=== PATIENT | male | born 1955 | race Two or more races ===

== ENCOUNTER 2020-09-01 10:24 | Inpatient (IN) | payer MEDICARE ==
[~2020-09-01] VITALS: Ht 157.5 cm; Wt 75.0 kg
[2020-09-01] MEDS ORDERED: SERT50TA12 PO (10:42)
[2020-09-01] MEDS ORDERED: METO5TAB7 PO (10:42)
[2020-09-01] MEDS ORDERED: DIPH1TAB24 PO (10:42)
[2020-09-01] MEDS ORDERED: predisone (10:42)
[2020-09-01] MEDS ORDERED: ONDA8TAB6 PO (10:42)
[2020-09-01] MEDS ORDERED: CLON0.5T4 PO (10:42)
[2020-09-01] MEDS ORDERED: MICA100V3 IV (10:42)
[2020-09-01] MEDS ORDERED: ELTR50TA PO (10:42)
[2020-09-01] MEDS ORDERED: ISAV186C PO (10:42)
[2020-09-01] MEDS ORDERED: SIRO2TAB PO (10:42)
[2020-09-01] MEDS ORDERED: PROC10TA17 PO (10:42)
[2020-09-01] MEDS ORDERED: ACYC200C PO (10:42)
[2020-09-01] MEDS ORDERED: METO-396 PO (10:42)
[2020-09-01] MEDS ORDERED: BUDE9TAB MT (10:42)
[2020-09-01] MEDS ORDERED: URSO300C4 PO (10:42)
[2020-09-01] MEDS ORDERED: PANT40TA4 PO (10:42)
[2020-09-01] MEDS ORDERED: [UNRECOGNIZED DRUG - CODE] IV (10:42)
[2020-09-01] MEDS ORDERED: atovaquone (10:42)
[2020-09-01] MEDS ORDERED: SODIUM CHLORIDE 0.9% 1,000 ML IV ONE ×2 (10:45→12:00)
[2020-09-01] MEDS ORDERED: MORPHINE SULFATE 4 MG/ML CPJ (NOT FOR IM USE) IV STA (10:52)
[2020-09-01] MEDS ORDERED: ONDANSETRON HCL 4MG/2ML INJ IV STA (10:52)
[2020-09-01] MEDS ORDERED: PIPERACILLIN/TAZ 3.375G PREMIX 50 ML IV ONE (11:00)
[2020-09-01] MEDS ORDERED: METRONIDAZOLE 500 MG PREMIX 100 ML IV ONE (11:00)
[2020-09-01 11:15] LABS: CHLORIDE 103 mEq/L (98-107)
[2020-09-01 11:16] LABS: HEMATOCRIT. 23.5 % (42.0-52.0); MEAN CORPUSCULAR HEMOGLOBIN 30.7 pg (28.0-32.0); MEAN CORPUSCULAR VOLUME 90.2 fL (80.0-94.0); MEAN PLATELET VOLUME 8.4 fl (7.4-10.4); RED CELL DISTRIBUTION WIDTH 16.2 % (11.6-14.6)
[2020-09-01 11:24] LABS: PLATELET 13 x1000/uL (130-400)
[2020-09-01] MEDS ORDERED: KCL 10MEQ/50ML PREMIX 100 ML IV SCH (12:00)
[2020-09-01] MEDS ORDERED: POTASSIUM CHLORIDE 20MEQ TABLET SR PO ONE (12:00)
[2020-09-01] MEDS ORDERED: NOREPINEPHRINE 8MG/250ML PMX 250 ML IV ONE (12:00)
[2020-09-01 12:02] LABS: PLATELET ESTIMATE MARKEDLY DECREASED
[2020-09-01] MEDS ORDERED: NOREPINEPHRINE 8MG/250ML PMX 250 ML IV PRN (12:30)
[2020-09-01] MEDS ORDERED: FENTANYL CITRATE/PF 50MCG/ML 2ML VIAL IV ONE (12:30)
[2020-09-01] MEDS ORDERED: CEFEPIME 1,000 MG in DEXTROSE 5% WATER 50 ML IV SCH (14:00)
[2020-09-01] MEDS: DEXT 5%/0.45% NACL 1000ML 1,000 ML IV SCH (15:04)
[2020-09-01] MEDS ORDERED: IOHEXOL-350 100 ML BOTTLE ONE (15:12)
[2020-09-01] MEDS ORDERED: MAGNESIUM 2 G PREMIX 50 ML IV NR (15:30)
[2020-09-01 15:54] LABS: CLARITY URINE CLEAR (CLEAR); COLOR URINE YELLOW (YELLOW); KETONES URINE NEGATIVE (NEGATIVE); LEUKOCYTE ESTERASE URINE NEGATIVE (NEGATIVE); NITRITE URINE NEGATIVE (NEGATIVE); OCCULT BLOOD URINE NEGATIVE (NEGATIVE); PROTEIN URINE NEGATIVE (NEGATIVE); SPECIFIC GRAVITY URINE 1.013 (1.005-1.030); UROBILINOGEN URINE 0.2 E.U./dL (0.2-1.0)
[2020-09-01] MEDS ORDERED: POTASSIUM CHLORIDE 20MEQ TABLET SR PO SCH (16:00)
[2020-09-01] MEDS ORDERED: MIDODRINE HCL 5MG TABLET PO SCH (16:07)
[2020-09-01] MEDS: ONDANSETRON HCL 4MG/2ML INJ IV PRN (16:51)
[2020-09-01] MEDS ORDERED: PHENYLEPHRINE 100 MG in DEXT 5% WATER 240 ML IV PRN (17:30)
[2020-09-01] MEDS ORDERED: TRAMADOL 50MG TABLET PO PRN (17:30)
[2020-09-01] MEDS: PANTOPRAZOLE SODIUM 40 MG/VIAL IV SCH (19:45)
[2020-09-01 21:01] LABS: HEMATOCRIT. 22.3 % (42.0-52.0); HEMOGLOBIN. 7.6 g/dL (14.0-18.0); MEAN CORPUSCULAR HEMOGLOBIN 31.2 pg (28.0-32.0); MEAN CORPUSCULAR VOLUME 91.9 fL (80.0-94.0); MEAN PLATELET VOLUME 8.1 fl (7.4-10.4); PLATELET 53 x1000/uL (130-400); RED BLOOD CELL COUNT 2.43 mill/uL (4.7-6.1); RED CELL DISTRIBUTION WIDTH 16.6 % (11.6-14.6)
[2020-09-01] MEDS ORDERED: METRONIDAZOLE 500 MG PREMIX 100 ML IV SCH (22:00)
[2020-09-01 22:25] LABS: NUCLEATED RED BLOOD CELLS 1 /100 WBC
[2020-09-01 22:26] LABS: PLATELET ESTIMATE MARKEDLY DECREASED
[2020-09-02] VITALS (45 sets, daily range): BP systolic 49–137; BP diastolic 13–98
[2020-09-02] MEDS ORDERED: NOREPINEPHRINE 8MG/250ML PMX 250 ML IV PRN ×2 (01:15→09:30)
[2020-09-02 04:07] LABS: HEMATOCRIT. 27.4 % (42.0-52.0); HEMOGLOBIN. 9.4 g/dL (14.0-18.0); MEAN CORPUSCULAR HEMOGLOBIN 30.3 pg (28.0-32.0); MEAN CORPUSCULAR VOLUME 88.8 fL (80.0-94.0); RED BLOOD CELL COUNT 3.09 mill/uL (4.7-6.1); RED CELL DISTRIBUTION WIDTH 16.8 % (11.6-14.6)
[2020-09-02 04:11] LABS: CHLORIDE 112 mEq/L (98-107); PLATELET 41 x1000/uL (130-400)
[2020-09-02] MEDS: DEXT 5%/0.45% NACL 1000ML 1,000 ML IV SCH (04:35)
[2020-09-02] MEDS: ONDANSETRON HCL 4MG/2ML INJ IV PRN ×3 (04:47→20:59)
[2020-09-02 04:52] LABS: ATYPICAL LYMPHOCYTES 2
[2020-09-02 04:53] LABS: PLATELET ESTIMATE DECREASED
[2020-09-02] MEDS ORDERED: POTASSIUM CHLORIDE INJ 40 MEQ in DEXT 5% WATER 500 ML IV NR (06:00)
[2020-09-02] MEDS ORDERED: MORPHINE SULFATE 4 MG/ML CPJ (NOT FOR IM USE) IV PRN (06:22)
[2020-09-02] MEDS ORDERED: NOREPINEPHRINE 8MG/250ML PMX 250ML IV ONE (06:23)
[2020-09-02] MEDS ORDERED: NOREPINEPHRINE 8 MG in DEXTROSE 5% WATER 250 ML IV PRN (09:30)
[2020-09-02 09:59] LABS: BG CARBOXYHEMOGLOBIN 0.3 % (0.5-1.5); BG FRACTION INSPIRED OXYGEN 34; BG HCO3 ACT 10.8 mmol/L (22.0-26.0); BG METHEMOGLOBIN 0.5 % (0.0-1.5); BG OXYHEMOGLOBIN 93.2 % (94.0-97.0); BG PCO2 22.5 mmHg (35.0-45.0); BG SAMPLE SITE RIGHT RADIAL; BG TOTAL HEMOGLOBIN 9.4 g/dL (12.0-18.0); BG VENT MODE NASAL CANNULA
[2020-09-02] MEDS: PHENYLEPHRINE 100 MG in DEXT 5% WATER 240 ML IV PRN ×2 (10:13→19:06)
[2020-09-02] MEDS ORDERED: IPRATROPIUM/ALBUTEROL 0.5-3(2.5)MG/3ML NEB HHN PRN (11:00)
[2020-09-02] MEDS ORDERED: LORAZEPAM 2MG/ML CPJ IV PRN (11:15)
[2020-09-02] MEDS: PANTOPRAZOLE SODIUM 40 MG/VIAL IV SCH (11:35)
[2020-09-02] MEDS: MORPHINE SULFATE 2 MG/ML CPJ (NOT FOR IM USE) IV PRN ×4 (11:36→21:15)
[2020-09-02] MEDS: CEFEPIME 1,000 MG in DEXTROSE 5% WATER 50 ML IV SCH (11:36)
[2020-09-02] MEDS: SODIUM BICARBONATE 100 MEQ in SODIUM CHLORIDE 0.45% 1,000 ML IV SCH ×2 (11:37→23:08)
[2020-09-02 12:05] LABS: PHOSPHORUS 3.2 mg/dL (2.5-4.9)
[2020-09-02 12:33] LABS: *AMPHETAMINES SCREEN URINE NEGATIVE (NEGATIVE); METHADONE URINE SCREEN NEGATIVE (NEGATIVE); OPIATES URINE SCREEN PRESUMTIVE POSITIVE (NEGATIVE); PHENCYCLIDINE URINE SCREEN NEGATIVE (NEGATIVE)
[2020-09-02 12:34] LABS: *BARBITURATES SCREEN URINE NEGATIVE (NEGATIVE); *BENZODIAZEPINES SCREEN URINE NEGATIVE (NEGATIVE); *COCAINE SCREEN URINE NEGATIVE (NEGATIVE); CANNABINOID URINE SCREEN NEGATIVE (NEGATIVE)
[2020-09-02] MEDS: METRONIDAZOLE 500 MG PREMIX 100 ML IV SCH ×2 (12:53→22:00)
[2020-09-02] MEDS: MIDODRINE HCL 5MG TABLET PO SCH ×2 (13:00→17:49)
[2020-09-02] MEDS ORDERED: MAGNESIUM 2 G PREMIX 50 ML IV NR (14:00)
[2020-09-02] MEDS ORDERED: SODIUM BICARBONATE 8.4% 1 MEQ/ML 50ML SYR IV NR (14:30)
[2020-09-02] MEDS: CITRIC ACID/SODIUM CITRATE SOLN 30ML UDC PO SCH ×2 (14:53→15:57)
[2020-09-02] MEDS ORDERED: AMIODARONE HCL 50MG/ML 3ML VIAL IV ONE (15:45)
[2020-09-02] MEDS: IPRATROPIUM/ALBUTEROL 0.5-3(2.5)MG/3ML NEB HHN SCH ×3 (16:17→23:35)
[2020-09-02] MEDS ORDERED: AMIODARONE HCL 150 MG in DEXT 5% WATER 100 ML IV SCH (16:30)
[2020-09-02 16:42] LABS: CHLORIDE 112 mEq/L (98-107)
[2020-09-02] MEDS: DEXTROSE 50% WATER 50ML SYRINGE IV PRN (23:08)
[2020-09-03] VITALS (88 sets, daily range): BP systolic 84–174; BP diastolic 34–111
[2020-09-03 00:55] LABS: BG BASE EXCESS -9.3 mmol/L (-2.0-2.0); BG CARBOXYHEMOGLOBIN 0.3 % (0.5-1.5); BG DEOXYHEMOGLOBIN 7.8 % (0.0-5.0); BG FRACTION INSPIRED OXYGEN 36; BG HCO3 ACT 15.7 mmol/L (22.0-26.0); BG METHEMOGLOBIN 0.3 % (0.0-1.5); BG OXYGEN SATURATION 92.2 % (92.0-98.5); BG OXYHEMOGLOBIN 91.6 % (94.0-97.0); BG PCO2 30.7 mmHg (35.0-45.0); BG PH 7.326 (7.350-7.450); BG PO2 67.8 mmHg (75.0-100.0); BG SAMPLE SITE RIGHT RADIAL; BG TOTAL HEMOGLOBIN 8.8 g/dL (12.0-18.0); BG VENT MODE NASAL CANNULA
[2020-09-03] MEDS ORDERED: SODIUM BICARBONATE 8.4% 1 MEQ/ML 50ML SYR IV NR ×2 (01:00→08:45)
[2020-09-03] MEDS: DEXTROSE 50% WATER 50ML SYRINGE IV PRN (02:16)
[2020-09-03] MEDS ORDERED: POTASSIUM CHLORIDE 20MEQ/PACKET PO NR (02:45)
[2020-09-03] MEDS: IPRATROPIUM/ALBUTEROL 0.5-3(2.5)MG/3ML NEB HHN SCH ×3 (03:26→20:42)
[2020-09-03] MEDS: CEFEPIME 1,000 MG in DEXTROSE 5% WATER 50 ML IV SCH ×2 (03:30→13:01)
[2020-09-03] MEDS: PHENYLEPHRINE 100 MG in DEXT 5% WATER 240 ML IV PRN ×2 (03:33→16:01)
[2020-09-03] MEDS: NOREPINEPHRINE 32 MG in DEXT 5% WATER 218 ML IV PRN ×2 (03:35→17:42)
[2020-09-03] MEDS ORDERED: POTASSIUM CHLORIDE INJ 40 MEQ in DEXT 5% WATER 250 ML IV NR (04:00)
[2020-09-03 05:44] LABS: HEMOGLOBIN. 8.8 g/dL (14.0-18.0); MEAN CORPUSCULAR HEMOGLOBIN 31.4 pg (28.0-32.0); MEAN CORPUSCULAR VOLUME 89.5 fL (80.0-94.0); MEAN PLATELET VOLUME 8.3 fl (7.4-10.4); RED BLOOD CELL COUNT 2.79 mill/uL (4.7-6.1); RED CELL DISTRIBUTION WIDTH 18.8 % (11.6-14.6)
[2020-09-03 05:48] LABS: CHLORIDE 108 mEq/L (98-107)
[2020-09-03 05:56] LABS: PHOSPHORUS 3.5 mg/dL (2.5-4.9)
[2020-09-03] MEDS: METRONIDAZOLE 500 MG PREMIX 100 ML IV SCH ×2 (06:25→13:10)
[2020-09-03 07:02] LABS: PLATELET 17 x1000/uL (130-400)
[2020-09-03] MEDS: BLOOD SUGAR DIAGNOSTIC STRIP TEST SCH ×3 (07:50→17:42)
[2020-09-03 08:05] LABS: BG BASE EXCESS -8.8 mmol/L (-2.0-2.0); BG CARBOXYHEMOGLOBIN 0.2 % (0.5-1.5); BG DEOXYHEMOGLOBIN 8.2 % (0.0-5.0); BG FRACTION INSPIRED OXYGEN 100; BG HCO3 ACT 16.5 mmol/L (22.0-26.0); BG METHEMOGLOBIN 0.2 % (0.0-1.5); BG OXYGEN SATURATION 91.8 % (92.0-98.5); BG OXYHEMOGLOBIN 91.4 % (94.0-97.0); BG PH 7.317 (7.350-7.450); BG PO2 65.5 mmHg (75.0-100.0); BG SAMPLE SITE RIGHT RADIAL; BG TOTAL HEMOGLOBIN 8.7 g/dL (12.0-18.0); BG VENT MODE MASK - NRB
[2020-09-03] MEDS ORDERED: FUROSEMIDE 100MG/10ML VIAL IVP SCH (08:45)
[2020-09-03] MEDS ORDERED: VASOPRESSIN 20 UNIT in SODIUM CHLORIDE 0.9% 99 ML IV PRN (08:45)
[2020-09-03] MEDS ORDERED: MIDAZOLAM HCL 100 MG in DEXT 5% WATER 80 ML IV ONE (08:45)
[2020-09-03] MEDS ORDERED: SUCCINYLCHOLINE CHLORIDE 200MG/10ML IV ONE (09:00)
[2020-09-03] MEDS ORDERED: VECURONIUM BROMIDE 10 MG/VIAL IV ONE (09:00)
[2020-09-03] MEDS ORDERED: ETOMIDATE 2MG/ML 10ML VIAL IV ONE (09:00)
[2020-09-03 09:17] LABS: BG BASE EXCESS -5.3 mmol/L (-2.0-2.0); BG CARBOXYHEMOGLOBIN 0.2 % (0.5-1.5); BG DEOXYHEMOGLOBIN 2.1 % (0.0-5.0); BG HCO3 ACT 20.7 mmol/L (22.0-26.0); BG METHEMOGLOBIN 0.3 % (0.0-1.5); BG OXYGEN SATURATION 97.9 % (92.0-98.5); BG OXYHEMOGLOBIN 97.4 % (94.0-97.0); BG PCO2 42.6 mmHg (35.0-45.0); BG PH 7.305 (7.350-7.450); BG PO2 124.8 mmHg (75.0-100.0); BG SAMPLE SITE RIGHT RADIAL; BG TOTAL HEMOGLOBIN 9.1 g/dL (12.0-18.0); BG VENT MODE VENT - AC
[2020-09-03] MEDS: CITRIC ACID/SODIUM CITRATE SOLN 30ML UDC PO SCH ×3 (09:50→16:06)
[2020-09-03] MEDS: MIDODRINE HCL 5MG TABLET PO SCH ×3 (09:50→16:06)
[2020-09-03] MEDS: PANTOPRAZOLE SODIUM 40 MG/VIAL IV SCH (09:50)
[2020-09-03 10:14] LABS: INR 1.6; PROTHROMBIN TIME 16.3 sec (9.6-11.0)
[2020-09-03] MEDS: SODIUM BICARBONATE 150 MEQ in DEXTROSE 5% WATER 1,000 ML IV SCH (10:42)
[2020-09-03] MEDS ORDERED: LIDOCAINE HCL 1% 20ML VIAL (Pyxis) INJ ONE (13:31)
[2020-09-03 17:26] LABS: PLATELET ESTIMATE MARKEDLY DECREASED
[2020-09-03] MEDS ORDERED: IOHEXOL-350 100 ML BOTTLE ONE (21:06)
[2020-09-03] MEDS: FENTANYL CITRATE/PF 1,000 MCG in SODIUM CHLORIDE 0.9% 80 ML IV PRN (21:46)
[2020-09-04] VITALS (126 sets, daily range): BP systolic 73–177; BP diastolic 43–81
[2020-09-04] MEDS: IPRATROPIUM/ALBUTEROL 0.5-3(2.5)MG/3ML NEB HHN SCH ×6 (00:55→20:39)
[2020-09-04] MEDS: METRONIDAZOLE 500 MG PREMIX 100 ML IV SCH ×2 (01:28→07:00)
[2020-09-04] MEDS: SODIUM BICARBONATE 150 MEQ in DEXTROSE 5% WATER 1,000 ML IV SCH ×3 (01:28→23:15)
[2020-09-04] MEDS: CEFEPIME 1,000 MG in DEXTROSE 5% WATER 50 ML IV SCH (01:36)
[2020-09-04] MEDS: BLOOD SUGAR DIAGNOSTIC STRIP TEST SCH ×4 (01:48→17:52)
[2020-09-04 05:44] LABS: INR 1.4; PROTHROMBIN TIME 14.9 sec (9.6-11.0)
[2020-09-04 05:59] LABS: HEMATOCRIT. 22.1 % (42.0-52.0); HEMOGLOBIN. 7.9 g/dL (14.0-18.0); MEAN CORPUSCULAR HEMOGLOBIN 31.4 pg (28.0-32.0); MEAN CORPUSCULAR VOLUME 87.5 fL (80.0-94.0); MEAN PLATELET VOLUME 8.9 fl (7.4-10.4); RED BLOOD CELL COUNT 2.52 mill/uL (4.7-6.1); RED CELL DISTRIBUTION WIDTH 18.5 % (11.6-14.6)
[2020-09-04 06:09] LABS: PLATELET 37 x1000/uL (130-400)
[2020-09-04 07:47] LABS: NUCLEATED RED BLOOD CELLS 1 /100 WBC; PLATELET ESTIMATE MARKEDLY DECREASED
[2020-09-04] MEDS ORDERED: POTASSIUM CHLORIDE 20MEQ TABLET SR PO NR (08:15)
[2020-09-04 09:14] LABS: BG BASE EXCESS -0.8 mmol/L (-2.0-2.0); BG CARBOXYHEMOGLOBIN 0.3 % (0.5-1.5); BG DEOXYHEMOGLOBIN 1.7 % (0.0-5.0); BG FRACTION INSPIRED OXYGEN 80; BG HCO3 ACT 23.9 mmol/L (22.0-26.0); BG METHEMOGLOBIN 0.5 % (0.0-1.5); BG OXYGEN SATURATION 98.3 % (92.0-98.5); BG OXYHEMOGLOBIN 97.5 % (94.0-97.0); BG PCO2 39.3 mmHg (35.0-45.0); BG PH 7.401 (7.350-7.450); BG PO2 140.5 mmHg (75.0-100.0); BG SAMPLE SITE ALINE; BG TOTAL HEMOGLOBIN 10.3 g/dL (12.0-18.0); BG VENT MODE VENT - AC
[2020-09-04] MEDS: CITRIC ACID/SODIUM CITRATE SOLN 30ML UDC PO SCH ×3 (09:19→17:36)
[2020-09-04] MEDS: MIDODRINE HCL 5MG TABLET PO SCH ×3 (09:20→17:37)
[2020-09-04] MEDS: PANTOPRAZOLE SODIUM 40 MG/VIAL IV SCH (09:21)
[2020-09-04] MEDS: FUROSEMIDE 40MG/4ML VIAL IVP SCH (09:21)
[2020-09-04] MEDS: MEROPENEM 1,000 MG in SODIUM CHLORIDE 0.9% 100 ML IV SCH ×2 (12:05→20:24)
[2020-09-04] MEDS: PHENYLEPHRINE 100 MG in DEXT 5% WATER 240 ML IV PRN (15:15)
[2020-09-04] MEDS: FENTANYL CITRATE/PF 1,000 MCG in SODIUM CHLORIDE 0.9% 80 ML IV PRN (23:15)
[2020-09-05] VITALS (104 sets, daily range): BP systolic 57–189; BP diastolic 29–91
[2020-09-05] MEDS: IPRATROPIUM/ALBUTEROL 0.5-3(2.5)MG/3ML NEB HHN SCH ×6 (00:22→20:18)
[2020-09-05] MEDS: NOREPINEPHRINE 32 MG in DEXT 5% WATER 218 ML IV PRN ×2 (05:24→22:16)
[2020-09-05] MEDS: BLOOD SUGAR DIAGNOSTIC STRIP TEST SCH ×4 (06:28→17:25)
[2020-09-05] MEDS: SODIUM BICARBONATE 150 MEQ in DEXTROSE 5% WATER 1,000 ML IV SCH (06:28)
[2020-09-05 06:45] LABS: PHOSPHORUS 3.1 mg/dL (2.5-4.9)
[2020-09-05 06:47] LABS: HEMATOCRIT. 21.2 % (42.0-52.0); HEMOGLOBIN. 7.6 g/dL (14.0-18.0); MEAN CORPUSCULAR HEMOGLOBIN 30.5 pg (28.0-32.0); MEAN CORPUSCULAR VOLUME 85.1 fL (80.0-94.0); MEAN PLATELET VOLUME 9.2 fl (7.4-10.4); RED BLOOD CELL COUNT 2.49 mill/uL (4.7-6.1); RED CELL DISTRIBUTION WIDTH 17.6 % (11.6-14.6)
[2020-09-05] MEDS: ACETAMINOPHEN 325MG TABLET PO PRN (07:57)
[2020-09-05] MEDS: FUROSEMIDE 40MG/4ML VIAL IVP SCH (07:58)
[2020-09-05] MEDS: MIDODRINE HCL 5MG TABLET PO SCH ×3 (07:58→17:50)
[2020-09-05] MEDS: MEROPENEM 1,000 MG in SODIUM CHLORIDE 0.9% 100 ML IV SCH ×2 (07:58→20:30)
[2020-09-05] MEDS: PANTOPRAZOLE SODIUM 40 MG/VIAL IV SCH (07:58)
[2020-09-05] MEDS: CITRIC ACID/SODIUM CITRATE SOLN 30ML UDC PO SCH ×3 (07:58→17:50)
[2020-09-05 08:16] LABS: NUCLEATED RED BLOOD CELLS 1 /100 WBC; PLATELET ESTIMATE MARKEDLY DECREASED
[2020-09-05 08:17] LABS: PLATELET 9 x1000/uL (130-400)
[2020-09-05] MEDS ORDERED: ALBUMIN HUMAN 25GM/100ML (25%) IV SCH (08:30)
[2020-09-05 08:50] LABS: BG BASE EXCESS 7.9 mmol/L (-2.0-2.0); BG CARBOXYHEMOGLOBIN 0.3 % (0.5-1.5); BG FRACTION INSPIRED OXYGEN 60; BG HCO3 ACT 31.8 mmol/L (22.0-26.0); BG METHEMOGLOBIN 0.4 % (0.0-1.5); BG OXYHEMOGLOBIN 98.3 % (94.0-97.0); BG PCO2 41.7 mmHg (35.0-45.0); BG PO2 223.7 mmHg (75.0-100.0); BG SAMPLE SITE RIGHT RADIAL; BG TOTAL HEMOGLOBIN 8.2 g/dL (12.0-18.0); BG VENT MODE VENT - AC
[2020-09-05] MEDS ORDERED: POTASSIUM CHLORIDE INJ 40 MEQ in DEXT 5% WATER 250 ML IV NR ×2 (09:00→22:00)
[2020-09-05] MEDS ORDERED: MAGNESIUM 2 G PREMIX 50 ML IV NR (09:00)
[2020-09-05] MEDS ORDERED: KCL 20MEQ/100ML PREMIX 100 ML IV NR (13:00)
[2020-09-05] MEDS ORDERED: ALBUMIN HUMAN 25GM/100ML (25%) IV NR (13:30)
[2020-09-05 19:48] LABS: HEMATOCRIT 18.7 % (42.0-52.0); HEMOGLOBIN 6.7 g/dL (14.0-18.0)
[2020-09-05 20:05] LABS: INR 1.4; PROTHROMBIN TIME 14.6 sec (9.6-11.0)
[2020-09-05] MEDS: FILGRASTIM-TBO 480 MCG/0.8 ML SYRINGE SQ SCH (22:17)
[2020-09-06] VITALS (106 sets, daily range): BP systolic 35–195; BP diastolic 21–96
[2020-09-06] MEDS: BLOOD SUGAR DIAGNOSTIC STRIP TEST SCH ×4 (00:02→18:43)
[2020-09-06] MEDS: IPRATROPIUM/ALBUTEROL 0.5-3(2.5)MG/3ML NEB HHN SCH ×6 (00:08→21:29)
[2020-09-06 08:17] LABS: BG BASE EXCESS 5.7 mmol/L (-2.0-2.0); BG CARBOXYHEMOGLOBIN 0.3 % (0.5-1.5); BG DEOXYHEMOGLOBIN 2.3 % (0.0-5.0); BG FRACTION INSPIRED OXYGEN 40; BG HCO3 ACT 30.5 mmol/L (22.0-26.0); BG METHEMOGLOBIN 0.7 % (0.0-1.5); BG OXYGEN SATURATION 97.7 % (92.0-98.5); BG OXYHEMOGLOBIN 96.7 % (94.0-97.0); BG PCO2 46.4 mmHg (35.0-45.0); BG PH 7.436 (7.350-7.450); BG PO2 108.6 mmHg (75.0-100.0); BG SAMPLE SITE ALINE; BG TOTAL HEMOGLOBIN 7.8 g/dL (12.0-18.0); BG TOTAL RESPIRATORY RATE 16 b/min; BG VENT MODE VENT - AC
[2020-09-06 08:36] LABS: HEMATOCRIT. 21.8 % (42.0-52.0); HEMOGLOBIN. 7.7 g/dL (14.0-18.0); MEAN CORPUSCULAR HEMOGLOBIN 30.3 pg (28.0-32.0); MEAN CORPUSCULAR VOLUME 85.9 fL (80.0-94.0); MEAN PLATELET VOLUME 8.7 fl (7.4-10.4); RED BLOOD CELL COUNT 2.54 mill/uL (4.7-6.1); RED CELL DISTRIBUTION WIDTH 18.2 % (11.6-14.6)
[2020-09-06 08:47] LABS: PLATELET 13 x1000/uL (130-400)
[2020-09-06 08:55] LABS: PHOSPHORUS 3.3 mg/dL (2.5-4.9)
[2020-09-06] MEDS: PANTOPRAZOLE SODIUM 40 MG/VIAL IV SCH (09:16)
[2020-09-06] MEDS: FUROSEMIDE 40MG/4ML VIAL IVP SCH (09:16)
[2020-09-06] MEDS: MEROPENEM 1,000 MG in SODIUM CHLORIDE 0.9% 100 ML IV SCH ×2 (09:16→21:29)
[2020-09-06] MEDS: CITRIC ACID/SODIUM CITRATE SOLN 30ML UDC PO SCH ×2 (09:17→13:35)
[2020-09-06] MEDS: MIDODRINE HCL 5MG TABLET PO SCH ×3 (09:17→17:49)
[2020-09-06] MEDS: PHENYLEPHRINE 100 MG in DEXT 5% WATER 240 ML IV PRN ×2 (11:20→17:53)
[2020-09-06] MEDS ORDERED: POTASSIUM CHLORIDE INJ 40 MEQ in DEXT 5% WATER 250 ML IV NR (12:00)
[2020-09-06] MEDS: DEXTROSE 50% WATER 50ML SYRINGE IV PRN (12:45)
[2020-09-06] MEDS ORDERED: BISACODYL 10MG SUPP PR NR (13:00)
[2020-09-06] MEDS: METOCLOPRAMIDE HCL 10MG/2ML VIAL IV SCH ×2 (13:35→17:52)
[2020-09-06 14:09] LABS: PLATELET ESTIMATE MARKEDLY DECREASED
[2020-09-06] MEDS: NOREPINEPHRINE 32 MG in DEXT 5% WATER 218 ML IV PRN (17:53)
[2020-09-06] MEDS: MICAFUNGIN 150 MG in SODIUM CHLORIDE 0.9% 100 ML IV SCH (18:45)
[2020-09-06] MEDS: FILGRASTIM-TBO 480 MCG/0.8 ML SYRINGE SQ SCH (21:29)
[2020-09-07] VITALS (112 sets, daily range): BP systolic 80–180; BP diastolic 36–91
[2020-09-07] MEDS: IPRATROPIUM/ALBUTEROL 0.5-3(2.5)MG/3ML NEB HHN SCH ×6 (00:05→20:05)
[2020-09-07] MEDS: METOCLOPRAMIDE HCL 10MG/2ML VIAL IV SCH ×4 (00:07→17:32)
[2020-09-07] MEDS: BLOOD SUGAR DIAGNOSTIC STRIP TEST SCH ×4 (00:07→17:33)
[2020-09-07] MEDS: PHENYLEPHRINE 100 MG in DEXT 5% WATER 240 ML IV PRN ×3 (01:34→21:47)
[2020-09-07 05:52] LABS: PHOSPHORUS 3.9 mg/dL (2.5-4.9)
[2020-09-07 05:53] LABS: HEMATOCRIT. 22.5 % (42.0-52.0); HEMOGLOBIN. 7.8 g/dL (14.0-18.0); MEAN CORPUSCULAR HEMOGLOBIN 30.3 pg (28.0-32.0); MEAN PLATELET VOLUME 8.8 fl (7.4-10.4); RED BLOOD CELL COUNT 2.58 mill/uL (4.7-6.1); RED CELL DISTRIBUTION WIDTH 18.3 % (11.6-14.6)
[2020-09-07 06:31] LABS: PLATELET 12 x1000/uL (130-400)
[2020-09-07] MEDS: PANTOPRAZOLE SODIUM 40 MG/VIAL IV SCH (08:59)
[2020-09-07] MEDS: MEROPENEM 1,000 MG in SODIUM CHLORIDE 0.9% 100 ML IV SCH ×2 (08:59→21:52)
[2020-09-07] MEDS: FUROSEMIDE 40MG/4ML VIAL IVP SCH (08:59)
[2020-09-07] MEDS: MIDODRINE HCL 5MG TABLET PO SCH ×3 (08:59→17:33)
[2020-09-07 09:28] LABS: BG BASE EXCESS 3.5 mmol/L (-2.0-2.0); BG CARBOXYHEMOGLOBIN 0.1 % (0.5-1.5); BG DEOXYHEMOGLOBIN 1.1 % (0.0-5.0); BG FRACTION INSPIRED OXYGEN 40; BG HCO3 ACT 28.3 mmol/L (22.0-26.0); BG METHEMOGLOBIN 0.6 % (0.0-1.5); BG OXYGEN SATURATION 98.9 % (92.0-98.5); BG OXYHEMOGLOBIN 98.2 % (94.0-97.0); BG PCO2 44.5 mmHg (35.0-45.0); BG PH 7.421 (7.350-7.450); BG PO2 173.4 mmHg (75.0-100.0); BG TOTAL HEMOGLOBIN 7.9 g/dL (12.0-18.0); BG VENT MODE VENT - AC
[2020-09-07 13:07] LABS: PLATELET ESTIMATE MARKEDLY DECREASED
[2020-09-07] MEDS: NOREPINEPHRINE 32 MG in DEXT 5% WATER 218 ML IV PRN (15:03)
[2020-09-07] MEDS: MICAFUNGIN 150 MG in SODIUM CHLORIDE 0.9% 100 ML IV SCH (17:33)
[2020-09-07] MEDS: FILGRASTIM-TBO 480 MCG/0.8 ML SYRINGE SQ SCH (21:56)
[2020-09-08] VITALS (99 sets, daily range): BP systolic 75–192; BP diastolic 35–92
[2020-09-08] MEDS: METOCLOPRAMIDE HCL 10MG/2ML VIAL IV SCH ×4 (01:07→18:09)
[2020-09-08] MEDS: BLOOD SUGAR DIAGNOSTIC STRIP TEST SCH ×4 (01:08→17:14)
[2020-09-08] MEDS: PHENYLEPHRINE 100 MG in DEXT 5% WATER 240 ML IV PRN ×4 (02:58→18:16)
[2020-09-08 05:29] LABS: HEMATOCRIT. 21.6 % (42.0-52.0); HEMOGLOBIN. 7.6 g/dL (14.0-18.0); MEAN CORPUSCULAR HEMOGLOBIN 30.4 pg (28.0-32.0); MEAN CORPUSCULAR VOLUME 86.7 fL (80.0-94.0); MEAN PLATELET VOLUME 8.3 fl (7.4-10.4); RED BLOOD CELL COUNT 2.49 mill/uL (4.7-6.1); RED CELL DISTRIBUTION WIDTH 18.3 % (11.6-14.6)
[2020-09-08 05:44] LABS: PHOSPHORUS 4.4 mg/dL (2.5-4.9)
[2020-09-08 05:47] LABS: PLATELET 29 x1000/uL (130-400)
[2020-09-08] MEDS: NOREPINEPHRINE 32 MG in DEXT 5% WATER 218 ML IV PRN ×2 (06:08→21:50)
[2020-09-08] MEDS: MEROPENEM 1,000 MG in SODIUM CHLORIDE 0.9% 100 ML IV SCH ×2 (08:57→21:50)
[2020-09-08] MEDS: MIDODRINE HCL 5MG TABLET PO SCH ×3 (08:57→18:09)
[2020-09-08] MEDS: PANTOPRAZOLE SODIUM 40 MG/VIAL IV SCH (08:58)
[2020-09-08 09:44] LABS: BG BASE EXCESS 2.7 mmol/L (-2.0-2.0); BG CARBOXYHEMOGLOBIN 1.3 % (0.5-1.5); BG DEOXYHEMOGLOBIN 2.1 % (0.0-5.0); BG FRACTION INSPIRED OXYGEN 30; BG HCO3 ACT 26.8 mmol/L (22.0-26.0); BG METHEMOGLOBIN 0.4 % (0.0-1.5); BG OXYGEN SATURATION 97.9 % (92.0-98.5); BG OXYHEMOGLOBIN 96.2 % (94.0-97.0); BG PCO2 38.7 mmHg (35.0-45.0); BG PH 7.458 (7.350-7.450); BG SAMPLE SITE ALINE; BG VENT MODE VENT - AC
[2020-09-08 10:10] LABS: PLATELET ESTIMATE MARKEDLY DECREASED
[2020-09-08] MEDS: IPRATROPIUM/ALBUTEROL 0.5-3(2.5)MG/3ML NEB HHN SCH ×2 (12:15→20:12)
[2020-09-08] MEDS: MICAFUNGIN 150 MG in SODIUM CHLORIDE 0.9% 100 ML IV SCH (18:48)
[2020-09-08] MEDS: FILGRASTIM-TBO 480 MCG/0.8 ML SYRINGE SQ SCH (21:58)
[2020-09-09] VITALS (109 sets, daily range): BP systolic 86–199; BP diastolic 32–88
[2020-09-09] MEDS: IPRATROPIUM/ALBUTEROL 0.5-3(2.5)MG/3ML NEB HHN SCH ×3 (00:10→08:28)
[2020-09-09] MEDS: METOCLOPRAMIDE HCL 10MG/2ML VIAL IV SCH ×4 (00:16→17:23)
[2020-09-09] MEDS: BLOOD SUGAR DIAGNOSTIC STRIP TEST SCH ×4 (00:17→17:28)
[2020-09-09] MEDS: PHENYLEPHRINE 100 MG in DEXT 5% WATER 240 ML IV PRN ×3 (01:14→19:16)
[2020-09-09 05:38] LABS: HEMOGLOBIN. 7.1 g/dL (14.0-18.0); MEAN CORPUSCULAR HEMOGLOBIN 30.4 pg (28.0-32.0); MEAN CORPUSCULAR VOLUME 86.6 fL (80.0-94.0); MEAN PLATELET VOLUME 8.6 fl (7.4-10.4); PHOSPHORUS 4.3 mg/dL (2.5-4.9); RED BLOOD CELL COUNT 2.35 mill/uL (4.7-6.1); RED CELL DISTRIBUTION WIDTH 18.7 % (11.6-14.6)
[2020-09-09 06:11] LABS: HEMATOCRIT. 20.3 % (42.0-52.0)
[2020-09-09 06:12] LABS: PLATELET 10 x1000/uL (130-400)
[2020-09-09] MEDS: PANTOPRAZOLE SODIUM 40 MG/VIAL IV SCH (10:05)
[2020-09-09] MEDS: MIDODRINE HCL 5MG TABLET PO SCH ×3 (10:05→17:23)
[2020-09-09] MEDS: MEROPENEM 1,000 MG in SODIUM CHLORIDE 0.9% 100 ML IV SCH ×2 (10:06→22:48)
[2020-09-09] MEDS ORDERED: POTASSIUM CHLORIDE 20MEQ TABLET SR PO NR (10:30)
[2020-09-09 11:10] LABS: PLATELET ESTIMATE MARKEDLY DECREASED
[2020-09-09] MEDS: IPRATROPIUM BROMIDE (0.02%) 0.5MG/2.5ML NEB HHN SCH ×2 (13:43→20:16)
[2020-09-09] MEDS: NOREPINEPHRINE 32 MG in DEXT 5% WATER 218 ML IV PRN (15:23)
[2020-09-09] MEDS: MICAFUNGIN 150 MG in SODIUM CHLORIDE 0.9% 100 ML IV SCH (17:37)
[2020-09-09] MEDS: FILGRASTIM-TBO 480 MCG/0.8 ML SYRINGE SQ SCH (22:48)
[2020-09-10] VITALS (101 sets, daily range): BP systolic 55–159; BP diastolic 28–82
[2020-09-10] MEDS: METOCLOPRAMIDE HCL 10MG/2ML VIAL IV SCH ×4 (00:20→18:06)
[2020-09-10] MEDS: BLOOD SUGAR DIAGNOSTIC STRIP TEST SCH ×4 (00:20→18:06)
[2020-09-10] MEDS: IPRATROPIUM BROMIDE (0.02%) 0.5MG/2.5ML NEB HHN SCH ×4 (01:38→21:05)
[2020-09-10 05:37] LABS: HEMATOCRIT. 23.1 % (42.0-52.0); HEMOGLOBIN. 8.2 g/dL (14.0-18.0); MEAN CORPUSCULAR HEMOGLOBIN 30.5 pg (28.0-32.0); MEAN CORPUSCULAR VOLUME 86.2 fL (80.0-94.0); MEAN PLATELET VOLUME 8.4 fl (7.4-10.4); RED BLOOD CELL COUNT 2.68 mill/uL (4.7-6.1); RED CELL DISTRIBUTION WIDTH 16.8 % (11.6-14.6)
[2020-09-10 05:58] LABS: PHOSPHORUS 4.3 mg/dL (2.5-4.9)
[2020-09-10] MEDS: PHENYLEPHRINE 100 MG in DEXT 5% WATER 240 ML IV PRN ×3 (06:46→19:44)
[2020-09-10 07:04] LABS: PLATELET 29 x1000/uL (130-400)
[2020-09-10 08:12] LABS: PLATELET ESTIMATE MARKEDLY DECREASED
[2020-09-10] MEDS ORDERED: POTASSIUM CHLORIDE 20MEQ TABLET SR PO NR (08:45)
[2020-09-10 08:53] LABS: BG BASE EXCESS 2.6 mmol/L (-2.0-2.0); BG CARBOXYHEMOGLOBIN 0.9 % (0.5-1.5); BG DEOXYHEMOGLOBIN 2.8 % (0.0-5.0); BG FRACTION INSPIRED OXYGEN 30; BG HCO3 ACT 26.1 mmol/L (22.0-26.0); BG METHEMOGLOBIN 0.3 % (0.0-1.5); BG OXYGEN SATURATION 97.2 % (92.0-98.5); BG PCO2 35.9 mmHg (35.0-45.0); BG PO2 93.6 mmHg (75.0-100.0); BG SAMPLE SITE ALINE; BG TOTAL HEMOGLOBIN 8.5 g/dL (12.0-18.0); BG TOTAL RESPIRATORY RATE 20 b/min; BG VENT MODE VENT - AC
[2020-09-10] MEDS: PANTOPRAZOLE SODIUM 40 MG/VIAL IV SCH (10:03)
[2020-09-10] MEDS: MEROPENEM 1,000 MG in SODIUM CHLORIDE 0.9% 100 ML IV SCH ×2 (10:03→21:23)
[2020-09-10] MEDS: MIDODRINE HCL 5MG TABLET PO SCH ×3 (10:03→18:06)
[2020-09-10] MEDS: ACETAMINOPHEN 325MG TABLET PO PRN (12:01)
[2020-09-10] MEDS: MICAFUNGIN 150 MG in SODIUM CHLORIDE 0.9% 100 ML IV SCH (18:06)
[2020-09-10] MEDS: FILGRASTIM-TBO 480 MCG/0.8 ML SYRINGE SQ SCH (21:23)
[2020-09-11] VITALS (106 sets, daily range): BP systolic 81–163; BP diastolic 31–96
[2020-09-11] MEDS: METOCLOPRAMIDE HCL 10MG/2ML VIAL IV SCH ×4 (00:17→18:33)
[2020-09-11] MEDS: BLOOD SUGAR DIAGNOSTIC STRIP TEST SCH ×4 (00:51→18:24)
[2020-09-11] MEDS: IPRATROPIUM BROMIDE (0.02%) 0.5MG/2.5ML NEB HHN SCH ×5 (02:03→20:57)
[2020-09-11] MEDS: PHENYLEPHRINE 100 MG in DEXT 5% WATER 240 ML IV PRN ×3 (03:32→20:41)
[2020-09-11 06:17] LABS: HEMATOCRIT. 23.3 % (42.0-52.0); HEMOGLOBIN. 8.2 g/dL (14.0-18.0); MEAN CORPUSCULAR HEMOGLOBIN 30.4 pg (28.0-32.0); MEAN CORPUSCULAR VOLUME 86.6 fL (80.0-94.0); MEAN PLATELET VOLUME 9.5 fl (7.4-10.4); RED BLOOD CELL COUNT 2.69 mill/uL (4.7-6.1); RED CELL DISTRIBUTION WIDTH 16.8 % (11.6-14.6)
[2020-09-11 06:23] LABS: CHLORIDE 93 mEq/L (98-107)
[2020-09-11 06:32] LABS: PHOSPHORUS 4.4 mg/dL (2.5-4.9)
[2020-09-11] MEDS: MEROPENEM 1,000 MG in SODIUM CHLORIDE 0.9% 100 ML IV SCH ×2 (08:48→20:36)
[2020-09-11] MEDS: PANTOPRAZOLE SODIUM 40 MG/VIAL IV SCH ×2 (08:48→18:33)
[2020-09-11] MEDS: MIDODRINE HCL 5MG TABLET PO SCH ×3 (08:48→18:33)
[2020-09-11 10:55] LABS: PLATELET ESTIMATE MARKEDLY DECREASED
[2020-09-11 10:56] LABS: PLATELET 9 x1000/uL (130-400)
[2020-09-11] MEDS: SUCRALFATE 1 G/10 ML UDC NG SCH ×3 (12:35→20:35)
[2020-09-11] MEDS: MICAFUNGIN 150 MG in SODIUM CHLORIDE 0.9% 100 ML IV SCH (18:33)
[2020-09-11] MEDS: FILGRASTIM-TBO 480 MCG/0.8 ML SYRINGE SQ SCH (20:36)
[2020-09-12] VITALS (103 sets, daily range): BP systolic 64–157; BP diastolic 29–69
[2020-09-12] MEDS: BLOOD SUGAR DIAGNOSTIC STRIP TEST SCH ×4 (00:14→17:46)
[2020-09-12] MEDS: METOCLOPRAMIDE HCL 10MG/2ML VIAL IV SCH ×4 (00:14→17:45)
[2020-09-12] MEDS: IPRATROPIUM BROMIDE (0.02%) 0.5MG/2.5ML NEB HHN SCH ×4 (02:27→20:28)
[2020-09-12 06:01] LABS: HEMATOCRIT. 21.3 % (42.0-52.0); HEMOGLOBIN. 7.5 g/dL (14.0-18.0); MEAN CORPUSCULAR HEMOGLOBIN 30.6 pg (28.0-32.0); MEAN CORPUSCULAR VOLUME 86.7 fL (80.0-94.0); MEAN PLATELET VOLUME 9.1 fl (7.4-10.4); RED BLOOD CELL COUNT 2.45 mill/uL (4.7-6.1); RED CELL DISTRIBUTION WIDTH 17.2 % (11.6-14.6)
[2020-09-12 06:05] LABS: INR 1.2; PARTIAL THROMBOPLASTIN TIME 42.7 sec (23.4-31.0)
[2020-09-12 06:06] LABS: CHLORIDE 93 mEq/L (98-107)
[2020-09-12 06:13] LABS: PHOSPHORUS 4.8 mg/dL (2.5-4.9)
[2020-09-12 06:23] LABS: PLATELET 32 x1000/uL (130-400)
[2020-09-12 07:43] LABS: NUCLEATED RED BLOOD CELLS 1 /100 WBC
[2020-09-12 07:44] LABS: PLATELET ESTIMATE MARKEDLY DECREASED
[2020-09-12] MEDS: PHENYLEPHRINE 100 MG in DEXT 5% WATER 240 ML IV PRN ×3 (08:03→19:24)
[2020-09-12] MEDS: SUCRALFATE 1 G/10 ML UDC NG SCH ×4 (11:44→20:02)
[2020-09-12] MEDS: ACETAMINOPHEN 325MG TABLET PO PRN ×2 (11:45→17:38)
[2020-09-12] MEDS: MIDODRINE HCL 5MG TABLET PO SCH ×3 (11:46→17:45)
[2020-09-12] MEDS: PANTOPRAZOLE SODIUM 40 MG/VIAL IV SCH ×2 (11:46→17:45)
[2020-09-12] MEDS: MEROPENEM 1,000 MG in SODIUM CHLORIDE 0.9% 100 ML IV SCH ×2 (11:47→20:02)
[2020-09-12] MEDS ORDERED: ALBUMIN HUMAN 25GM/100ML (25%) IV NR (12:30)
[2020-09-13] VITALS (96 sets, daily range): BP systolic 86–149; BP diastolic 37–72
[2020-09-13] MEDS: IPRATROPIUM BROMIDE (0.02%) 0.5MG/2.5ML NEB HHN SCH ×4 (02:31→20:27)
[2020-09-13 05:57] LABS: CHLORIDE 93 mEq/L (98-107)
[2020-09-13] MEDS: METOCLOPRAMIDE HCL 10MG/2ML VIAL IV SCH ×5 (06:05→23:05)
[2020-09-13] MEDS: BLOOD SUGAR DIAGNOSTIC STRIP TEST SCH ×5 (06:05→23:05)
[2020-09-13 06:10] LABS: PHOSPHORUS 4.9 mg/dL (2.5-4.9)
[2020-09-13 06:53] LABS: HEMATOCRIT. 21.3 % (42.0-52.0); HEMOGLOBIN. 7.4 g/dL (14.0-18.0); MEAN CORPUSCULAR HEMOGLOBIN 30.6 pg (28.0-32.0); MEAN CORPUSCULAR VOLUME 88.6 fL (80.0-94.0); MEAN PLATELET VOLUME 10.3 fl (7.4-10.4); RED BLOOD CELL COUNT 2.41 mill/uL (4.7-6.1); RED CELL DISTRIBUTION WIDTH 17.2 % (11.6-14.6)
[2020-09-13 07:03] LABS: PLATELET 9 x1000/uL (130-400)
[2020-09-13] MEDS: MEROPENEM 1,000 MG in SODIUM CHLORIDE 0.9% 100 ML IV SCH ×2 (09:34→20:50)
[2020-09-13] MEDS: SUCRALFATE 1 G/10 ML UDC NG SCH ×4 (09:34→20:50)
[2020-09-13] MEDS: PANTOPRAZOLE SODIUM 40 MG/VIAL IV SCH ×2 (09:34→17:42)
[2020-09-13] MEDS: MIDODRINE HCL 5MG TABLET PO SCH ×3 (09:35→17:42)
[2020-09-13] MEDS: PHENYLEPHRINE 100 MG in DEXT 5% WATER 240 ML IV PRN ×2 (11:09→20:29)
[2020-09-13] MEDS ORDERED: POTASSIUM CHLORIDE 10MEQ TABLET SR PO SCH (12:00)
[2020-09-13] MEDS ORDERED: MAGNESIUM 1 G PREMIX 100 ML IV SCH (12:00)
[2020-09-13 12:53] LABS: PLATELET ESTIMATE MARKEDLY DECREASED
[2020-09-13] MEDS: MICAFUNGIN 150 MG in SODIUM CHLORIDE 0.9% 100 ML IV SCH (15:17)
[2020-09-14] VITALS (98 sets, daily range): BP systolic 102–164; BP diastolic 19–86
[2020-09-14] MEDS: IPRATROPIUM BROMIDE (0.02%) 0.5MG/2.5ML NEB HHN SCH ×4 (02:11→20:06)
[2020-09-14] MEDS: METOCLOPRAMIDE HCL 10MG/2ML VIAL IV SCH ×4 (05:11→23:05)
[2020-09-14] MEDS: PHENYLEPHRINE 100 MG in DEXT 5% WATER 240 ML IV PRN ×2 (05:13→16:16)
[2020-09-14] MEDS: BLOOD SUGAR DIAGNOSTIC STRIP TEST SCH ×4 (05:13→23:05)
[2020-09-14 06:06] LABS: MEAN CORPUSCULAR HEMOGLOBIN 30.6 pg (28.0-32.0); MEAN CORPUSCULAR VOLUME 88.1 fL (80.0-94.0); MEAN PLATELET VOLUME 9.2 fl (7.4-10.4); RED BLOOD CELL COUNT 2.23 mill/uL (4.7-6.1); RED CELL DISTRIBUTION WIDTH 16.8 % (11.6-14.6)
[2020-09-14 06:12] LABS: CHLORIDE 92 mEq/L (98-107)
[2020-09-14 06:25] LABS: PHOSPHORUS 4.9 mg/dL (2.5-4.9)
[2020-09-14 06:44] LABS: HEMOGLOBIN. 6.8 g/dL (14.0-18.0)
[2020-09-14 06:45] LABS: HEMATOCRIT. 19.6 % (42.0-52.0); PLATELET 34 x1000/uL (130-400)
[2020-09-14 08:39] LABS: BG BASE EXCESS 2.2 mmol/L (-2.0-2.0); BG CARBOXYHEMOGLOBIN 0.6 % (0.5-1.5); BG DEOXYHEMOGLOBIN 1.6 % (0.0-5.0); BG FRACTION INSPIRED OXYGEN 35; BG HCO3 ACT 26.4 mmol/L (22.0-26.0); BG METHEMOGLOBIN 0.8 % (0.0-1.5); BG OXYGEN SATURATION 98.4 % (92.0-98.5); BG PCO2 39.1 mmHg (35.0-45.0); BG PH 7.447 (7.350-7.450); BG PO2 135.3 mmHg (75.0-100.0); BG SAMPLE SITE ALINE; BG TOTAL HEMOGLOBIN 6.7 g/dL (12.0-18.0); BG TOTAL RESPIRATORY RATE 24 b/min; BG VENT MODE VENT - AC
[2020-09-14] MEDS: ALBUMIN HUMAN 25GM/100ML (25%) IV SCH (09:00)
[2020-09-14] MEDS: PANTOPRAZOLE SODIUM 40 MG/VIAL IV SCH ×2 (09:14→17:29)
[2020-09-14] MEDS: SUCRALFATE 1 G/10 ML UDC NG SCH ×4 (09:14→21:12)
[2020-09-14] MEDS: MIDODRINE HCL 5MG TABLET PO SCH ×3 (09:15→17:29)
[2020-09-14] MEDS: MEROPENEM 1,000 MG in SODIUM CHLORIDE 0.9% 100 ML IV SCH (09:46)
[2020-09-14 10:42] LABS: NUCLEATED RED BLOOD CELLS 1 /100 WBC; PLATELET ESTIMATE MARKEDLY DECREASED
[2020-09-14] MEDS ORDERED: POTASSIUM CHLORIDE INJ 30 MEQ in DEXT 5% WATER 250 ML IV SCH (14:00)
[2020-09-14] MEDS: MICAFUNGIN 150 MG in SODIUM CHLORIDE 0.9% 100 ML IV SCH (14:18)
[2020-09-15] VITALS (97 sets, daily range): BP systolic 92–150; BP diastolic 42–87
[2020-09-15] MEDS: IPRATROPIUM BROMIDE (0.02%) 0.5MG/2.5ML NEB HHN SCH ×4 (02:04→20:20)
[2020-09-15] MEDS: PHENYLEPHRINE 100 MG in DEXT 5% WATER 240 ML IV PRN (02:38)
[2020-09-15] MEDS: BLOOD SUGAR DIAGNOSTIC STRIP TEST SCH ×4 (05:16→23:12)
[2020-09-15] MEDS: METOCLOPRAMIDE HCL 10MG/2ML VIAL IV SCH ×4 (05:16→23:11)
[2020-09-15 05:57] LABS: HEMOGLOBIN. 7.7 g/dL (14.0-18.0); MEAN CORPUSCULAR HEMOGLOBIN 30.7 pg (28.0-32.0); MEAN CORPUSCULAR VOLUME 87.7 fL (80.0-94.0); MEAN PLATELET VOLUME 8.6 fl (7.4-10.4); RED BLOOD CELL COUNT 2.51 mill/uL (4.7-6.1); RED CELL DISTRIBUTION WIDTH 17.2 % (11.6-14.6)
[2020-09-15 06:20] LABS: CHLORIDE 93 mEq/L (98-107)
[2020-09-15 06:27] LABS: PHOSPHORUS 4.2 mg/dL (2.5-4.9)
[2020-09-15 06:29] LABS: PLATELET 47 x1000/uL (130-400)
[2020-09-15] MEDS ORDERED: LIDOCAINE HCL 1% 20ML VIAL (Pyxis) INJ ONE (07:34)
[2020-09-15] MEDS ORDERED: HEPARIN 1000 UNITS/ML 10ML ONE (07:35)
[2020-09-15 07:47] LABS: BG BASE EXCESS 1.3 mmol/L (-2.0-2.0); BG CARBOXYHEMOGLOBIN 0.1 % (0.5-1.5); BG DEOXYHEMOGLOBIN 1.4 % (0.0-5.0); BG HCO3 ACT 23.9 mmol/L (22.0-26.0); BG METHEMOGLOBIN 0.2 % (0.0-1.5); BG OXYGEN SATURATION 98.6 % (92.0-98.5); BG OXYHEMOGLOBIN 98.3 % (94.0-97.0); BG PCO2 29.3 mmHg (35.0-45.0); BG PH 7.529 (7.350-7.450); BG PO2 149.4 mmHg (75.0-100.0); BG SAMPLE SITE ALINE; BG TOTAL HEMOGLOBIN 7.6 g/dL (12.0-18.0); BG VENT MODE VENT - AC
[2020-09-15] MEDS: SUCRALFATE 1 G/10 ML UDC NG SCH ×4 (08:50→20:38)
[2020-09-15 09:21] LABS: PLATELET ESTIMATE MARKEDLY DECREASED
[2020-09-15] MEDS: PANTOPRAZOLE SODIUM 40 MG/VIAL IV SCH ×2 (09:52→18:14)
[2020-09-15] MEDS: MIDODRINE HCL 5MG TABLET PO SCH ×3 (09:53→17:15)
[2020-09-15] MEDS: ALBUMIN HUMAN 25GM/100ML (25%) IV SCH (15:15)
[2020-09-15] MEDS: MICAFUNGIN 150 MG in SODIUM CHLORIDE 0.9% 100 ML IV SCH (18:14)
[2020-09-16] VITALS (98 sets, daily range): BP systolic 101–206; BP diastolic 17–182
[2020-09-16] MEDS: IPRATROPIUM BROMIDE (0.02%) 0.5MG/2.5ML NEB HHN SCH ×4 (00:45→20:20)
[2020-09-16] MEDS: BLOOD SUGAR DIAGNOSTIC STRIP TEST SCH ×3 (05:16→17:30)
[2020-09-16] MEDS: METOCLOPRAMIDE HCL 10MG/2ML VIAL IV SCH ×3 (05:16→17:23)
[2020-09-16 06:33] LABS: MEAN CORPUSCULAR HEMOGLOBIN 30.9 pg (28.0-32.0); MEAN CORPUSCULAR VOLUME 88.6 fL (80.0-94.0); MEAN PLATELET VOLUME 8.5 fl (7.4-10.4); RED BLOOD CELL COUNT 2.28 mill/uL (4.7-6.1)
[2020-09-16 06:49] LABS: HEMATOCRIT. 20.2 % (42.0-52.0); PHOSPHORUS 2.9 mg/dL (2.5-4.9); PLATELET 21 x1000/uL (130-400)
[2020-09-16] MEDS ORDERED: POTASSIUM CHLORIDE 20MEQ/PACKET NG NR (07:15)
[2020-09-16] MEDS: SUCRALFATE 1 G/10 ML UDC NG SCH ×4 (08:15→21:28)
[2020-09-16] MEDS: PANTOPRAZOLE SODIUM 40 MG/VIAL IV SCH ×2 (08:15→17:23)
[2020-09-16] MEDS: MIDODRINE HCL 5MG TABLET PO SCH ×3 (08:16→17:23)
[2020-09-16 08:45] LABS: PLATELET ESTIMATE MARKEDLY DECREASED
[2020-09-16] MEDS ORDERED: HEPARIN 100 UNITS/1 ML VIAL IVF SCH (09:00)
[2020-09-16] MEDS ORDERED: KCL 20MEQ/100ML PREMIX 100 ML IV NR (09:30)
[2020-09-16 10:23] LABS: BG BASE EXCESS 2.8 mmol/L (-2.0-2.0); BG CARBOXYHEMOGLOBIN 0.3 % (0.5-1.5); BG DEOXYHEMOGLOBIN 1.7 % (0.0-5.0); BG FRACTION INSPIRED OXYGEN 35; BG HCO3 ACT 27.1 mmol/L (22.0-26.0); BG METHEMOGLOBIN 0.6 % (0.0-1.5); BG OXYGEN SATURATION 98.3 % (92.0-98.5); BG OXYHEMOGLOBIN 97.4 % (94.0-97.0); BG PCO2 40.6 mmHg (35.0-45.0); BG PH 7.443 (7.350-7.450); BG SAMPLE SITE ALINE; BG TOTAL HEMOGLOBIN 7.3 g/dL (12.0-18.0); BG VENT MODE VENT - AC
[2020-09-16] MEDS ORDERED: MAGNESIUM 1 G PREMIX 100 ML IV SCH (12:30)
[2020-09-16] MEDS: MICAFUNGIN 150 MG in SODIUM CHLORIDE 0.9% 100 ML IV SCH (14:30)
[2020-09-16 15:23] LABS: HEMOGLOBIN 8.7 g/dL (14.0-18.0)
[2020-09-16] MEDS ORDERED: POTASSIUM CHLORIDE INJ 40 MEQ in DEXT 5% WATER 250 ML IV NR (20:00)
[2020-09-16] MEDS: MEROPENEM 1,000 MG in SODIUM CHLORIDE 0.9% 100 ML IV SCH (21:28)
[2020-09-16] MEDS: ACETAMINOPHEN 325MG TABLET PO PRN (21:54)
[2020-09-17] VITALS (69 sets, daily range): BP systolic 105–167; BP diastolic 50–85
[2020-09-17] MEDS: BLOOD SUGAR DIAGNOSTIC STRIP TEST SCH ×4 (00:36→17:09)
[2020-09-17] MEDS: METOCLOPRAMIDE HCL 10MG/2ML VIAL IV SCH ×4 (00:46→17:09)
[2020-09-17] MEDS: IPRATROPIUM BROMIDE (0.02%) 0.5MG/2.5ML NEB HHN SCH ×4 (03:19→20:18)
[2020-09-17 08:03] LABS: MEAN CORPUSCULAR HEMOGLOBIN 30.8 pg (28.0-32.0); MEAN CORPUSCULAR VOLUME 87.8 fL (80.0-94.0); MEAN PLATELET VOLUME 7.8 fl (7.4-10.4); RED BLOOD CELL COUNT 2.72 mill/uL (4.7-6.1)
[2020-09-17] MEDS: SUCRALFATE 1 G/10 ML UDC NG SCH ×3 (08:15→17:09)
[2020-09-17 08:21] LABS: HEMOGLOBIN. 8.4 g/dL (14.0-18.0)
[2020-09-17 08:22] LABS: HEMATOCRIT. 23.9 % (42.0-52.0)
[2020-09-17 08:52] LABS: PHOSPHORUS 2.9 mg/dL (2.5-4.9)
[2020-09-17] MEDS: PANTOPRAZOLE SODIUM 40 MG/VIAL IV SCH ×2 (09:41→17:09)
[2020-09-17] MEDS: DOCUSATE SODIUM SUGAR FREE 100MG/10ML UDC NG SCH (09:41)
[2020-09-17] MEDS: MIDODRINE HCL 5MG TABLET PO SCH ×2 (09:42→12:49)
[2020-09-17] MEDS: MEROPENEM 1,000 MG in SODIUM CHLORIDE 0.9% 100 ML IV SCH (09:44)
[2020-09-17] MEDS ORDERED: ROCURONIUM BROMIDE 10MG/ML VIAL 5ML IV ONE (11:43)
[2020-09-17] MEDS ORDERED: CEFAZOLIN SODIUM 1000MG/VIAL ONE (11:48)
[2020-09-17] MEDS ORDERED: SODIUM CHLORIDE 0.9% 10ML VIAL ONE (11:48)
[2020-09-17 12:03] LABS: PLATELET ESTIMATE MARKEDLY DECREASED
[2020-09-17 12:04] LABS: PLATELET 18 x1000/uL (130-400)
[2020-09-17] MEDS: DEXT 5%/0.45% NACL 1000ML 1,000 ML IV SCH (13:45)
[2020-09-17 14:09] LABS: HEMATOCRIT 24.4 % (42.0-52.0); HEMOGLOBIN 8.4 g/dL (14.0-18.0); MEAN CORPUSCULAR HEMOGLOBIN 30.6 pg (28.0-32.0); MEAN CORPUSCULAR VOLUME 88.9 fL (80.0-94.0); RED BLOOD CELL COUNT 2.75 mill/uL (4.7-6.1); RED CELL DISTRIBUTION WIDTH 16.4 % (11.6-14.6)
[2020-09-17 14:29] LABS: PLATELET 23 x1000/uL (130-400)
[2020-09-17 14:41] LABS: BG BASE EXCESS -1.2 mmol/L (-2.0-2.0); BG CARBOXYHEMOGLOBIN 0.3 % (0.5-1.5); BG DEOXYHEMOGLOBIN 1.7 % (0.0-5.0); BG HCO3 ACT 22.6 mmol/L (22.0-26.0); BG METHEMOGLOBIN 0.4 % (0.0-1.5); BG OXYGEN SATURATION 98.3 % (92.0-98.5); BG OXYHEMOGLOBIN 97.6 % (94.0-97.0); BG PCO2 34.1 mmHg (35.0-45.0); BG PO2 141.9 mmHg (75.0-100.0); BG SAMPLE SITE ALINE; BG TOTAL HEMOGLOBIN 8.6 g/dL (12.0-18.0); BG VENT MODE VENT - AC
[2020-09-17] MEDS: PHENYLEPHRINE 100 MG in DEXT 5% WATER 240 ML IV PRN (15:30)
[2020-09-17] MEDS: MICAFUNGIN 150 MG in SODIUM CHLORIDE 0.9% 100 ML IV SCH (15:50)
[2020-09-17 16:07] LABS: INR 1.1; PARTIAL THROMBOPLASTIN TIME 38.2 sec (23.4-31.0); PROTHROMBIN TIME 11.1 sec (9.6-11.0)
[2020-09-17 23:46] LABS: HEMOGLOBIN 8.3 g/dL (14.0-18.0); MEAN CORPUSCULAR HEMOGLOBIN 31.2 pg (28.0-32.0); RED BLOOD CELL COUNT 2.66 mill/uL (4.7-6.1); RED CELL DISTRIBUTION WIDTH 16.7 % (11.6-14.6)
[2020-09-17 23:53] LABS: PLATELET 14 x1000/uL (130-400)
[2020-09-18] VITALS (53 sets, daily range): BP systolic 103–159; BP diastolic 58–101
[2020-09-18] MEDS: MEROPENEM 1,000 MG in SODIUM CHLORIDE 0.9% 100 ML IV SCH ×3 (00:34→21:08)
[2020-09-18] MEDS: BLOOD SUGAR DIAGNOSTIC STRIP TEST SCH ×4 (00:35→17:34)
[2020-09-18] MEDS: METOCLOPRAMIDE HCL 10MG/2ML VIAL IV SCH ×4 (00:37→17:52)
[2020-09-18] MEDS: SUCRALFATE 1 G/10 ML UDC NG SCH ×4 (00:37→18:07)
[2020-09-18] MEDS: IPRATROPIUM BROMIDE (0.02%) 0.5MG/2.5ML NEB HHN SCH ×4 (01:11→20:19)
[2020-09-18 07:01] LABS: PHOSPHORUS 2.2 mg/dL (2.5-4.9)
[2020-09-18 07:50] LABS: MEAN CORPUSCULAR HEMOGLOBIN 30.8 pg (28.0-32.0); MEAN CORPUSCULAR VOLUME 89.3 fL (80.0-94.0); MEAN PLATELET VOLUME 7.4 fl (7.4-10.4); PLATELET 67 x1000/uL (130-400); RED BLOOD CELL COUNT 1.97 mill/uL (4.7-6.1); RED CELL DISTRIBUTION WIDTH 17.3 % (11.6-14.6)
[2020-09-18 08:06] LABS: HEMATOCRIT. 17.6 % (42.0-52.0); HEMOGLOBIN. 6.1 g/dL (14.0-18.0)
[2020-09-18 08:27] LABS: PLATELET ESTIMATE DECREASED
[2020-09-18] MEDS: DOCUSATE SODIUM SUGAR FREE 100MG/10ML UDC NG SCH (08:43)
[2020-09-18] MEDS: PANTOPRAZOLE SODIUM 40 MG/VIAL IV SCH ×2 (08:43→17:51)
[2020-09-18] MEDS: DEXT 5%/0.45% NACL 1000ML 1,000 ML IV SCH (08:48)
[2020-09-18] MEDS ORDERED: POTASSIUM PHOS,M-BASIC-D-BASIC 15 MMOL in DEXT 5% WATER 245 ML IV NR (10:00)
[2020-09-18] MEDS: MORPHINE SULFATE 2 MG/ML CPJ (NOT FOR IM USE) IV PRN ×2 (11:54→22:28)
[2020-09-18] MEDS: MICAFUNGIN 150 MG in SODIUM CHLORIDE 0.9% 100 ML IV SCH (14:35)
[2020-09-18 15:16] LABS: HEMATOCRIT 31.4 % (42.0-52.0); MEAN CORPUSCULAR HEMOGLOBIN 31.1 pg (28.0-32.0); MEAN CORPUSCULAR VOLUME 89.2 fL (80.0-94.0); RED BLOOD CELL COUNT 3.52 mill/uL (4.7-6.1); RED CELL DISTRIBUTION WIDTH 15.8 % (11.6-14.6)
[2020-09-18 15:18] LABS: PLATELET 29 x1000/uL (130-400)
[2020-09-18 15:40] LABS: PHOSPHORUS 3.7 mg/dL (2.5-4.9)
[2020-09-18] MEDS ORDERED: MIDAZOLAM HCL 5 MG/5 ML VIAL ONE (15:54)
[2020-09-18] MEDS ORDERED: FENTANYL CITRATE/PF 50MCG/ML 2ML VIAL ONE (15:55)
[2020-09-18] MEDS ORDERED: MIDAZOLAM HCL 5 MG/5 ML VIAL IV PRN (16:40)
[2020-09-18] MEDS ORDERED: POTASSIUM CHLORIDE INJ 40 MEQ in DEXT 5% WATER 500 ML IV NR (22:00)
[2020-09-19] VITALS (28 sets, daily range): BP systolic 122–171; BP diastolic 73–97
[2020-09-19] MEDS: METOCLOPRAMIDE HCL 10MG/2ML VIAL IV SCH ×4 (00:24→18:38)
[2020-09-19] MEDS: SUCRALFATE 1 G/10 ML UDC NG SCH ×4 (00:25→18:38)
[2020-09-19] MEDS: BLOOD SUGAR DIAGNOSTIC STRIP TEST SCH ×4 (00:42→18:35)
[2020-09-19] MEDS ORDERED: KCL 20MEQ/100ML PREMIX 100 ML IV ONE ×2 (00:45)
[2020-09-19] MEDS: KCL 20MEQ/100ML PREMIX 100 ML IV SCH ×2 (01:06→05:31)
[2020-09-19] MEDS: IPRATROPIUM BROMIDE (0.02%) 0.5MG/2.5ML NEB HHN SCH ×3 (02:07→14:45)
[2020-09-19] MEDS: DEXT 5%/0.45% NACL 1000ML 1,000 ML IV SCH (05:37)
[2020-09-19 05:53] LABS: HEMATOCRIT. 30.3 % (42.0-52.0); HEMOGLOBIN. 10.5 g/dL (14.0-18.0); MEAN CORPUSCULAR VOLUME 89.4 fL (80.0-94.0); MEAN PLATELET VOLUME 8.1 fl (7.4-10.4); RED BLOOD CELL COUNT 3.39 mill/uL (4.7-6.1); RED CELL DISTRIBUTION WIDTH 16.4 % (11.6-14.6)
[2020-09-19 05:56] LABS: PLATELET 14 x1000/uL (130-400)
[2020-09-19 07:11] LABS: PLATELET ESTIMATE MARKEDLY DECREASED
[2020-09-19] MEDS: PANTOPRAZOLE SODIUM 40 MG/VIAL IV SCH ×2 (08:23→18:38)
[2020-09-19] MEDS: DOCUSATE SODIUM SUGAR FREE 100MG/10ML UDC NG SCH (08:23)
[2020-09-19] MEDS: MEROPENEM 1,000 MG in SODIUM CHLORIDE 0.9% 100 ML IV SCH ×2 (08:24→22:16)
[2020-09-19 09:00] LABS: PROTHROMBIN TIME 10.9 sec (9.6-11.0)
[2020-09-19] MEDS ORDERED: ALBUMIN HUMAN 25GM/100ML (25%) IV NR (09:00)
[2020-09-19 09:01] LABS: HEMATOCRIT. 31.7 % (42.0-52.0); HEMOGLOBIN. 10.9 g/dL (14.0-18.0); MEAN CORPUSCULAR HEMOGLOBIN 31.1 pg (28.0-32.0); MEAN CORPUSCULAR VOLUME 90.4 fL (80.0-94.0); MEAN PLATELET VOLUME 8.1 fl (7.4-10.4); RED BLOOD CELL COUNT 3.51 mill/uL (4.7-6.1); RED CELL DISTRIBUTION WIDTH 16.3 % (11.6-14.6)
[2020-09-19 09:04] LABS: PHOSPHORUS 3.7 mg/dL (2.5-4.9)
[2020-09-19 09:07] LABS: PLATELET 12 x1000/uL (130-400)
[2020-09-19] MEDS ORDERED: AMLODIPINE 5MG TABLET NG SCH (09:15)
[2020-09-19 09:42] LABS: PLATELET ESTIMATE MARKEDLY DECREASED
[2020-09-19] MEDS: MORPHINE SULFATE 2 MG/ML CPJ (NOT FOR IM USE) IV PRN ×2 (10:13→16:51)
[2020-09-19] MEDS ORDERED: ZINC SULFATE 220 MG ( 50 ) CAPSULE PO SCH (13:30)
[2020-09-19] MEDS ORDERED: ASCORBIC ACID 500 MG TABLET PO SCH (13:30)
[2020-09-19] MEDS ORDERED: BISACODYL 10MG SUPP PR NR ×2 (15:00→17:00)
[2020-09-19] MEDS ORDERED: MICAFUNGIN 100 MG in SODIUM CHLORIDE 0.9% 100 ML IV SCH (20:00)
== END 2020-09-20 00:37 | DRG 3 ==
LOC: ER 10:48 → CVICU 13:56 → ENRESERV 09-02 07:40
PROVIDERS: ADMIT Internal Medicine; ATTEND Internal Medicine
PROC: 02HV33Z Insertion of Infusion Device into Superior Vena Cava, Percutaneous Approach (ICD-10-PCS; 2020-09-03)
PROC: B548ZZA Ultrasonography of Superior Vena Cava, Guidance (ICD-10-PCS; 2020-09-03)
PROC: 05HN33Z Insertion of Infusion Device into Left Internal Jugular Vein, Percutaneous Approach (ICD-10-PCS; 2020-09-15)
PROC: B544ZZA Ultrasonography of Left Jugular Veins, Guidance (ICD-10-PCS; 2020-09-15)
PROC: 0GBJ0ZZ Excision of Thyroid Gland Isthmus, Open Approach (ICD-10-PCS; 2020-09-17)
PROC: 5A1955Z Respiratory Ventilation, Greater than 96 Consecutive Hours (ICD-10-PCS; principal; 2020-09-19)
PROC: 0B110F4 Bypass Trachea to Cutaneous with Tracheostomy Device, Open Approach (ICD-10-PCS; 2020-09-19)
PROC: 0DB68ZX Excision of Stomach, Via Natural or Artificial Opening Endoscopic, Diagnostic (ICD-10-PCS; 2020-09-19)
PROC: 0BH18EZ Insertion of Endotracheal Airway into Trachea, Via Natural or Artificial Opening Endoscopic (ICD-10-PCS; 2020-09-19)
DX: A41.51 Sepsis due to Escherichia coli [E. coli] (principal); R65.21 Severe sepsis with septic shock; E43 Unspecified severe protein-calorie malnutrition; N18.6 End stage renal disease; J96.00 Acute respiratory failure, unspecified whether with hypoxia or hypercapnia; G93.41 Metabolic encephalopathy; I50.31 Acute diastolic (congestive) heart failure; J18.9 Pneumonia, unspecified organism; J96.01 Acute respiratory failure with hypoxia; K22.11 Ulcer of esophagus with bleeding; K21.01 Gastro-esophageal reflux disease with esophagitis, with bleeding; K29.71 Gastritis, unspecified, with bleeding; N17.0 Acute kidney failure with tubular necrosis; C92.00 Acute myeloblastic leukemia, not having achieved remission; D61.818 Other pancytopenia; E87.1 Hypo-osmolality and hyponatremia; E87.2 Acidosis; I13.2 Hypertensive heart and chronic kidney disease with heart failure and with stage 5 chronic kidney disease, or end stage renal disease; I31.3 Pericardial effusion (noninflammatory); I47.1 Supraventricular tachycardia; K56.7 Ileus, unspecified; R18.8 Other ascites; Z94.81 Bone marrow transplant status; K52.9 Noninfective gastroenteritis and colitis, unspecified; G90.8 Other disorders of autonomic nervous system; D63.0 Anemia in neoplastic disease; K31.9 Disease of stomach and duodenum, unspecified; D70.9 Neutropenia, unspecified; E83.42 Hypomagnesemia; E87.6 Hypokalemia; H70.90 Unspecified mastoiditis, unspecified ear; I49.3 Ventricular premature depolarization; K31.89 Other diseases of stomach and duodenum; K76.0 Fatty (change of) liver, not elsewhere classified; R50.81 Fever presenting with conditions classified elsewhere; Y84.8 Other medical procedures as the cause of abnormal reaction of the patient, or of later complication, without mention of misadventure at the time of the procedure; Z51.5 Encounter for palliative care; Z82.49 Family history of ischemic heart disease and other diseases of the circulatory system; Z86.73 Personal history of transient ischemic attack (TIA), and cerebral infarction without residual deficits; Z87.19 Personal history of other diseases of the digestive system; Z92.21 Personal history of antineoplastic chemotherapy; Z93.1 Gastrostomy status; Z68.30 Body mass index [BMI] 30.0-30.9, adult; Z99.2 Dependence on renal dialysis; Z79.899 Other long term (current) drug therapy
CPT/HCPCS: 36415; 36556; 36600; 70496; 70498; 70551; 71045; 71275; 74018; 74176; 76700; 76705; 76937; 78580; 80048; 80053; 80061; 80305; 81003; 82040; 82140; 82248; 82375; 82805; 82962; 83036; 83605; 83735; 83880; 84100; 84132; 84134; 84145; 84484; 85014; 85018; 85025; 85027; 85049; 85379; 85384; 86850; 86900; 86920; 86945; 87015; 87045; 87077; 87186; 87426; 87427; 87493; 88305; 88313; 93005; 93306; 93970; 94002; 94003; 94640; 96365; 99291; C1725; C1752; C9113; J0282; J0330; J0690; J0692; J1442; J1642; J1644; J1940; J2060; J2185; J2248; J2250; J2270; J2370; J2405; J2543; J2765; J3010; J3475; J3480; J3490; J7030; J7050; J7060; J7070; P9016; P9034; P9047; Q9967